=== PATIENT | female | born 1955 | race Caucasian/White ===

== ENCOUNTER 2020-03-07 12:56 | Emergency (ER) | payer MEDICARE, SELFPAY ==
[2020-03-07 13:07] VITALS: BP 200/112; PULSE 81; RESP 18; TEMP 36.7; O2SAT 98
--- NOTE | 2020-03-07 13:26 | ED.ABDPAIN ---
HPI - Abdominal Pain General Chief Complaint: Abdominal Pain Stated Complaint: bloody stool/?diverticulosis x8 months Time Seen by Provider: 03/07/20 13:07 Source: patient Mode of arrival: Ambulatory Limitations: no limitations History of Present Illness HPI narrative: Patient is a 64-year-old who presents with 8 months of ongoing abdominal pain and chronic nausea. She says she just got insurance she has an appointment on the but the pain is progressively getting worse. She says that she has had increased pain and nausea over the last 4-5 days. She had some diarrhea as well. But it does sound like she fluctuates between diarrhea and constipation. She feels like she has had a fever. But has not taken his temperature. She also has some burning with urination. MD complaint: abdominal pain Onset (ago): month(s) Pain Consistency: constant Location: LLQ and RLQ Severity: moderate Migration to: no migration Associated symptoms: nausea, diarrhea and constipation Related Data Allergies Allergy/AdvReac Type Severity Reaction Status Date / Time No Known Drug Allergies Allergy Verified 03/07/20 13:35 Review of Systems Review of Systems Narrative: GENERAL: Denies chills, fatigue, malaise, fever, sweats, travel HEENT: Denies sinus pain, ear pain, sore throat, difficulty swallowing, neck pain RESPIRATORY: Denies dyspnea, cough, wheezing, hemoptysis, sputum. CARDIOVASCULAR: Denies chest pain, palpitations, orthopnea, edema GASTROINTESTINAL: See HPI : Denies dysuria, frequency, incontinence, hematuria, urinary retention, flank pain. MUSCULOSKELETAL: Denies weakness, joint pain, or bony pain SKIN: No rash, no erythema, no pruritus NEUROLOGIC: Denies weakness, dizziness, headache, numbness, change in speech, confusion PSYCHIATRIC: No concerning psychosocial issues. 12 point review of systems is negative except for those stated above and HPI Patient History Medical History PTSD (post-traumatic stress disorder) (Acute) Exam Initial Vital Signs Initial Vital Signs: Vital Signs Temperature 98.0 F 03/07/20 13:07 Pulse Rate 81 03/07/20 13:07 Respiratory Rate 18 03/07/20 13:07 Blood Pressure 200/112 H 03/07/20 13:07 Pulse Oximetry 98 03/07/20 13:07 GENERAL: Alert middle-aged female appears in pain and in no acute distress. HEENT: Head atraumatic,EOMI, pupils reactive, face symmetric, moist mucous membranes CARDIOVASCULAR: Regular rate and rhythm without murmurs, rubs or gallops. RESPIRATORY: Breath sounds equal bilaterally, no wheezes rales or rhonchi. ABDOMEN: Soft, tender along the lower abdomen more left lower quadrant than right lower quadrant but both and suprapubic no guarding or rebound no distension normal bowel sounds EXTREMITIES: Normal range of motion, no clubbing or edema. Neurovascularly intact NEUROLOGICAL: Alert and oriented x4.Normal gait and speech. SKIN: Warm, dry, no laceration, no petechiae, no rashes or lesions. Course Orders Ordered: ED Orders 03/07/20 13:17 Complete Blood Count AUTO DIFF Stat Comprehensive Metabolic Panel Stat Lipase Stat 03/07/20 14:36 CT abdomen pelvis w con Stat Discontinued Medications Sodium Chloride (Normal Saline 0.9%) 1,000 mls @ 150 mls/hr IV CONT DYAN Last Admin: 03/07/20 13:36 Dose: 150 mls/hr Documented by: BRIANONER Ketorolac Tromethamine (Toradol) 30 mg IV NOW ONE Stop: 03/07/20 13:27 Last Admin: 03/07/20 13:36 Dose: 30 mg Documented by: BRIANONER Ondansetron HCl (Zofran) 4 mg IV NOW ONE Stop: 03/07/20 13:27 Last Admin: 03/07/20 13:36 Dose: 4 mg Documented by: BRIANONEHanna Vital Signs Vital signs: Vital Signs - 8 hr 03/07/20 13:07 03/07/20 14:41 03/07/20 15:19 Temperature 98.0 F Pulse Rate 81 71 69 Respiratory Rate 18 18 18 Blood Pressure 200/112 H 172/96 H 161/95 H Pulse Oximetry 98 95 97 MDM - Abdominal Pain Lab Data Attestation: I reviewed the patient's lab results. Result diagrams: 03/07/20 13:17 03/07/20 13:17 Labs: Lab Results 03/07/20 03/07/20 Range/Units 13:17 13:17 WBC 7.7 (4.5-11.0) X10^3/uL RBC 5.00 (4.0-5.2) X10^6/uL Hgb 15.3 (12.0-16.0) g/dL Hct 44.9 (36-46) % MCV 89.9 (80-100) fL MCH 30.5 (26-34) PG MCHC 33.9 (30-36) % RDW 13.5 (11.6-14.8) % Plt Count 313 (150-400) X10^3/uL Neut % (Auto) 68.9 (50-75) % Lymph % (Auto) 22.6 L (25-40) % [place] % (Auto) 6.2 (3-14) % Eos % (Auto) 1.7 L (2-4) % Baso % (Auto) 0.6 (0-2) % Neut # (Auto) 5300 (3249-2935) /uL Lymph # (Auto) 1800 (6211-1186) /uL [place] # (Auto) 500 (0-900) /uL Eos # (Auto) 100 (0-450) /uL Baso # (Auto) 0 (0-100) /uL Sodium 139 (137-145) mmol/L Potassium 4.2 (3.4-5.1) mmol/L Chloride 101 (98-107) mmol/L Carbon Dioxide 32 (22-32) mmol/L BUN 17 (7-17) mg/dL Creatinine 0.61 (0.52-1.04) mg/dL Estimated GFR > 60.0 (>60) mL/min BUN/Creatinine Ratio 27.9 H (6-22) Glucose 154 H (80-110) mg/dL Calcium 9.8 (8.4-10.2) mg/dL Total Bilirubin 0.5 (0.2-1.3) mg/dL AST 35 (14-36) IU/L ALT 42 H (<35) IU/L Alkaline Phosphatase 118 (38-126) U/L Total Protein 8.0 (6.3-8.2) g/dL Albumin 4.3 (3.5-5.0) g/dL Globulin 3.7 (1.7-4.1) g/dL Albumin/Globulin Ratio 1.2 (1.0-2.8) Lipase 168 (23-300) U/L Point of care testing: Urine Dip Bedside Urine Glucose 500 mg/dl Bedside Urine Bilirubin - Negative Bedside Urine Ketone - Negative Urine Specific [place] 1.025 Bedside Urine Occult Blood - Negative Bedside Urine pH 6.0 Bedside Urine Protein - Negative Bedside Urine Urobilinogen - Negative Bedside Urine Nitrite - Negative Bedside Urine Leukocytes - Negative Esterase Imaging Data CT scan - abdomen/pelvis: Radiologist's Impression: PROCEDURE: CT ABDOMEN PELVIS W CON INDICATIONS: lower ab pain TECHNIQUE: After the administration of intravenous contrast, 5 mm thick sections acquired from the diaphragm to the symphysis. 5 mm coronal and sagittal reformats were acquired. For radiation dose reduction, the following was used: automated exposure control, adjustment of mA and/or kV according to patient size. COMPARISON: None. FINDINGS: Image quality: Excellent. ABDOMEN: Lung bases: Lung bases are clear. Heart size is normal. Solid organs: There is hepatomegaly. There is diffuse fatty infiltration of the liver. Gallbladder is unremarkable . Biliary system is non dilated. Pancreas enhances normally. Spleen is normal in size and enhancement. No adrenal nodules. Kidneys demonstrate normal size and enhancement, without hydronephrosis. Peritoneum and bowel: Bowel loops demonstrate normal wall thickness and caliber. No free fluid or air. Nodes and vessels: No retroperitoneal or mesenteric adenopathy by size criteria. Aorta and inferior vena cava are normal in size. Miscellaneous: No ventral hernias. PELVIS: Genitourinary: Bladder wall thickness is normal. Miscellaneous: No inguinal hernias or adenopathy. Uterus is surgically absent. Bones: No suspicious bony lesions. No vertebral body compression fractures. IMPRESSION: 1. Hepatomegaly, hepatic steatosis. 2. Remote hysterectomy. 3. No evidence of acute abdominal process. Dictated by: Leonard Giraldo M.D. on 03/07/2020 at 14:43 MDM Narrative Medical decision making narrative: The patient has been having ongoing abdominal pain for the last 8 months slightly worse over the last few days. A CT and blood work were overall reassuring. She has appointment with PCP on the . Blood pressure is also noted be slightly elevated here at command she discuss blood pressure with her PCP. She may require GI referral. However at this time her symptoms are consistent with IBS. We discussed possibly changing diet and trying an elimination diet to see if that helps any of her symptoms. Discharge Plan Departure Patient Disposition: Home Clinical Impression: Irritable bowel disease Qualifiers: Irritable bowel syndrome type: with both diarrhea and constipation Qualified Code(s): K58.2 - Mixed irritable bowel syndrome Discharge Date/Time: 03/07/20 15:24 Instructions: Irritable Bowel Syndrome Activity Restrictions/Additional Instructions: *You have been diagnosed with irritable bowel syndrome *What to do: At this time I recommend you follow-up with your provider on the . He may need a carry out clerk and shelf stocker consultation for further evaluation *Continue to take medications as directed 600 mg every 6-8 hours as needed for pain *Follow up with your primary care provider in 2-3 days *Return to ER if you should have a fever, bloody stools, vomiting blood, or any new, worsening or concerning symptoms Referrals: Twin Mccormack MD [Primary Care Provider] -
[2020-03-07] MEDS: SODIUM CHLORIDE 0.9% 1,000 ML 150 ML IV (13:36)
[2020-03-07] MEDS: KETOROLAC 60 MG/2 ML VIAL 30 MG IV (13:36)
[2020-03-07] MEDS: ONDANSETRON 4 MG/2 ML INJ IV (13:36)
[2020-03-07 13:39] LABS: Add Manual Diff / Slide Review NO; Basophils Absolute Auto 0 /uL (0-100); Basophils Percent Auto 0.6 % (0-2); Eosinophils Absolute Auto 100 /uL (0-450); Eosinophils Percent Auto 1.7 % (2-4); Hematocrit 44.9 % (36-46); Hemoglobin 15.3 g/dL (12.0-16.0); Lymphocytes Absolute Auto 1800 /uL (1100-4500); Lymphocytes Percent Auto 22.6 % (25-40); Mean Corpuscular HGB Conc 33.9 % (30-36); Mean Corpuscular Hemoglobin 30.5 PG (26-34); Mean Corpuscular Volume 89.9 fL (80-100); Monocytes Absolute Auto 500 /uL (0-900); Monocytes Percent Auto 6.2 % (3-14); Neutrophils Absolute Auto 5300 /uL (1500-7000); Neutrophils Percent Auto 68.9 % (50-75); Platelet Count 313 X10^3/uL (150-400); Red Cell Distribution Width 13.5 % (11.6-14.8); White Blood Cell Count 7.7 X10^3/uL (4.5-11.0)
[2020-03-07 13:45] LABS: Alanine Aminotransferase 42 IU/L (<35); Albumin 4.3 g/dL (3.5-5.0); Albumin Globulin Ratio 1.2 (1.0-2.8); Alkaline Phosphatase 118 U/L (38-126); Aspartate Aminotransferase 35 IU/L (14-36); BUN Creatinine Ratio 27.9 (6-22); Bilirubin Total 0.5 mg/dL (0.2-1.3); Blood Urea Nitrogen 17 mg/dL (7-17); Calcium 9.8 mg/dL (8.4-10.2); Carbon Dioxide 32 mmol/L (22-32); Chloride 101 mmol/L (98-107); Estimated Glomerular Filt Rate > 60.0 mL/min (>60); Globulin 3.7 g/dL (1.7-4.1); Glucose 154 mg/dL (80-110); HEMOLYSIS 17 (0-50); Lipase 168 U/L (23-300); Potassium 4.2 mmol/L (3.4-5.1); Sodium 139 mmol/L (137-145)
--- NOTE | 2020-03-07 14:36 | DI.CT.S_ITS ---
PROCEDURE: CT ABDOMEN PELVIS W CON INDICATIONS: lower ab pain TECHNIQUE: After the administration of intravenous contrast, 5 mm thick sections acquired from the diaphragm to the symphysis. 5 mm coronal and sagittal reformats were acquired. For radiation dose reduction, the following was used: automated exposure control, adjustment of mA and/or kV according to patient size. COMPARISON: None. FINDINGS: Image quality: Excellent. ABDOMEN: Lung bases: Lung bases are clear. Heart size is normal. Solid organs: There is hepatomegaly. There is diffuse fatty infiltration of the liver. Gallbladder is unremarkable . Biliary system is non dilated. Pancreas enhances normally. Spleen is normal in size and enhancement. No adrenal nodules. Kidneys demonstrate normal size and enhancement, without hydronephrosis. Peritoneum and bowel: Bowel loops demonstrate normal wall thickness and caliber. No free fluid or air. Nodes and vessels: No retroperitoneal or mesenteric adenopathy by size criteria. Aorta and inferior vena cava are normal in size. Miscellaneous: No ventral hernias. PELVIS: Genitourinary: Bladder wall thickness is normal. Miscellaneous: No inguinal hernias or adenopathy. Uterus is surgically absent. Bones: No suspicious bony lesions. No vertebral body compression fractures. IMPRESSION: 1. Hepatomegaly, hepatic steatosis. 2. Remote hysterectomy. 3. No evidence of acute abdominal process. Dictated by: Leonard Giraldo M.D. on 03/07/2020 at 14:43 Approved by: Leonard Giraldo M.D. on 03/07/2020 at 14:46
[2020-03-07 14:41] VITALS: BP 172/96; PULSE 71; RESP 18; O2SAT 95
[2020-03-07 15:19] VITALS: BP 161/95; PULSE 69; RESP 18; O2SAT 97
== END 2020-03-07 15:24 | disposition home or self-care (01) ==
PROVIDERS: Emergency Provider Emergency Medicine; PCP Family Medicine
DX: K58.2 Mixed irritable bowel syndrome (principal); R11.0 Nausea; K59.00 Constipation, unspecified; R19.7 Diarrhea, unspecified
CPT/HCPCS: 36415; 74177; 80053; 81003; 83690; 85025; 96361; 96374; 96375; 99284; J1885; J2405; Q9967